=== PATIENT | female | born 1965 | race African-American/Black ===

== ENCOUNTER 2019-02-10 11:51 | Emergency (ER) | payer BC, MEDICAID ==
[~2019-02-10] VITALS: Ht 160 cm; Wt 80.7 kg
[~2019-02-10 11:51] MED LIST: LOSA1TAB22 PO
[2019-02-10 12:18] VITALS: BP 145/85
[2019-02-10 12:54] LABS: INFLUENZA A PATIENT NEGATIVE (NEGATIVE); INFLUENZA B PATIENT POSITIVE (NEGATIVE)
[2019-02-10] MEDS ORDERED: OSELTAMIVIR 75 MG CAPSULE PO STA (12:54)
[2019-02-10] MEDS ORDERED: BENZ100C PO (13:17)
[2019-02-10] MEDS ORDERED: ALBU2.5V8 IH (13:17)
[2019-02-10] MEDS ORDERED: HYDR-3164 PO (13:17)
[2019-02-10] MEDS ORDERED: OSEL75CA PO (13:17)
--- NOTE | 2019-02-10 13:17 | PHYS DOC ---
Past Medical History Past Medical History: Hypertension Past Surgical History: No Surgical History Alcohol Use: Occasionally Drug Use: None Adult General Chief Complaint Chief Complaint: DIZZY/LIGHT HEADED HPI HPI Patient is a 53 year old patient with history of hypertension who presents with complaining of dizziness. Patient states she had mild cough and congestion for 1 week that getting worse since yesterday and today felt dizzy and hot at work and almost passing out with generalized body ache and increasing cough and congestion. Patient complaining of nausea without vomiting, diarrhea, sick contact, focal neuro deficit, headache and head injury. Review of Systems Review of Systems Constitutional: Denies fever or chills [] Eyes: Denies change in visual acuity, redness, or eye pain [] HENT: Reports nasal congestion and sore throat Respiratory: Reports cough Cardiovascular: No additional information not addressed in HPI [] GI: Denies abdominal pain, vomiting, bloody stools or diarrhea [] : Denies dysuria or hematuria [] Musculoskeletal: Denies back pain or joint pain [] Integument: Denies rash or skin lesions [] Neurologic: Denies headache, focal weakness or sensory changes [] Endocrine: Denies polyuria or polydipsia [] All other systems were reviewed and found to be within normal limits, except as documented in this note. Current Medications Current Medications Current Medications Medications (Trade) Dose Ordered Sig/Tari Start Time Stop Time Status Last Admin Dose Admin Oseltamivir Phosphate (Tamiflu) 75 mg 1X STAT 02/10/19 12:54 02/10/19 12:56 DC Allergies Allergies Allergies Coded Allergies Type Severity Reaction Last Updated Verified No Known Drug Allergies 10/29/14 No Physical Exam Physical Exam Constitutional: Well developed, well nourished, mild distress, non-toxic appearance, temperature of 99. [] HENT: Normocephalic, atraumatic, bilateral external ears normal, oropharynx moist, pharyngeal erythema, no oral exudates, nasal congestion. [] Eyes: PERRLA, EOMI, conjunctiva normal, no discharge. [] Neck: Normal range of motion, no tenderness, supple, no stridor. [] Cardiovascular: Tachycardia, no murmur [] Lungs & Thorax: Bilateral breath sounds clear to auscultation [] Abdomen: Bowel sounds normal, soft, no tenderness, no masses, no pulsatile masses. [] Skin: Warm, dry, no erythema, no rash. [] Back: No tenderness, no CVA tenderness. [] Extremities: No tenderness, no cyanosis, no clubbing, ROM intact, no edema. [] Neurologic: Alert and oriented X 3, normal motor function, normal sensory function, no focal deficits noted. [] Psychologic: Affect normal, judgement normal, mood normal. [] Current Patient Data Vital Signs Vital Signs Date Time Temp Pulse Resp B/P (MAP) Pulse Ox O2 Delivery O2 Flow Rate FiO2 02/10/19 12:18 98.7 96 20 145/85 (105) 97 Room Air 98.7 Lab Values Laboratory Tests Test 02/10/19 12:15 Influenza Type A Antigen Negative (NEGATIVE) Influenza Type B Antigen Positive (NEGATIVE) EKG EKG [] Radiology/Procedures Radiology/Procedures [] Course & Med Decision Making Course & Med Decision Making Pertinent Labs reviewed. (See chart for details) Evaluation of patient in ER showed 53-year-old male patient with complaining of urinary symptom and dizziness and myalgia with positive flu. Flu in ER. Plan discharge patient home with diagnose of influenza B and prescription of Tamiflu, hydrocodone and albuterol and Tessalon. I've spoken with the patient and/or caregivers. I've explained the patient's condition, diagnosis and treatment plan based on information available to me at this time. I've answered the patient's and/or caregivers questions and addressed any concerns. The patient and/or caregivers have a good understanding the patient's diagnosis, condition and treatment plan as can be expected at this point. Vital signs have been stabilized. The patient's condition is stable for discharge from the emergency department. The patient will pursue further outpatient evaluation with her primary care provider or other designated consulting physician as outlined in the discharge instructions. Patient and/or caregivers are agreeable to this plan of care and follow-up instructions have been explained in detail. The patient and/or caregivers have received these instructions in written format and expressed understanding of these discharge instructions. The patient and her caregivers are aware that if any significant change in condition or worsening of symptoms should prompt him to immediately return to this of the closest emergency department. If an emergent department is not readily available I would encourage him to call 911. Julissa Disclaimer Julissa Disclaimer This electronic medical record was generated, in whole or in part, using a voice recognition dictation system. Departure Departure Impression: Primary Impression: Influenza B Additional Impressions: Myalgia Dizziness Disposition: HOME, SELF-CARE (at 1414) Condition: STABLE Referrals: LUBA GEORGE MD (PCP) Patient Instructions: Cough, Adult, Fever, Adult, Influenza, Adult Additional Instructions: Drink plenty of liquids Follow-up with your primary care physician in 3-5 days Return to ER if not getting better Thank you for visiting [facility]. We appreciate you trusting us with your care. If any additional problems come up don't hesitate to return to visit us. Please follow up with your primary care provider so they can plan additional care if needed and know about the problem that you had. If symptoms worsen come back to the Emergency Department. Any concerning symptoms that start such as chest pain, shortness of air, weakness or numbness on one side of the body, running high fevers or any other concerning symptoms return to the ER. Scripts Benzonatate (TESSALON PERLE) 100 Mg Capsule 1 CAP PO TID for cough, #21 CAP Prov: LU ALEMAN MD 02/10/19 Oseltamivir Phosphate (TAMIFLU) 75 Mg Capsule 1 CAP PO BID, #10 CAP Prov: LU ALEMAN MD 02/10/19 Albuterol Sulfate (PROAIR HFA INHALER) 8.5 Gm Hfa.aer.ad 2 PUFF IH PRN Q4-6HRS PRN for wheezing for 21 Days, #1 INHALER 0 Refills Prov: LU ALEMAN MD 02/10/19 Hydrocodone/Apap 5-325 (NORCO 5-325 TABLET) 1 Each Tablet 1 TAB PO PRN Q6HRS PRN for PAIN, #14 TAB 0 Refills Prov: LU ALEMAN MD 02/10/19 Problem Qualifiers LU ALEMAN MD Feb 10, 2019 13:17
== END 2019-02-10 13:41 | disposition home or self-care (01) ==
LOC: ER 11:51
DX: J10.1 Influenza due to other identified influenza virus with other respiratory manifestations (principal); M79.10 Myalgia, unspecified site; R42 Dizziness and giddiness; R11.2 Nausea with vomiting, unspecified; R19.7 Diarrhea, unspecified; R09.81 Nasal congestion; I10 Essential (primary) hypertension
CPT/HCPCS: 87804; 99284

== ENCOUNTER → 2020-06-26 | Outpatient (CLI) | payer BC, MEDICAID ==
[~2020-06-26] MED LIST changes: +ALBU2.5V8 IH; +BENZ100C PO; +HYDR-3164 PO; +OSEL75CA PO
--- NOTE | 2020-06-26 12:21 | CARD ---
MR#: [id number] Date of Study: 06/26/2020 Ordering Physician: GENNA WEBER, Referring Physician: GENNA WEBER, Tech: Clary Tyson, [facility] APPROVED REPORT EXAM: Two-dimensional and M-mode echocardiogram with Doppler and color Doppler. Other Information Quality : AverageHR: 55bpm INDICATION Hypertension/HCVD 2D DIMENSIONS RVDd3.2 (2.9-3.5cm)Left Atrium(2D)3.1 (1.6-4.0cm) IVSd0.8 (0.7-1.1cm)Aortic Root(2D)3.4 (2.0-3.7cm) LVDd4.3 (3.9-5.9cm)LVOT Diameter2.0 (1.8-2.4cm) PWd0.8 (0.7-1.1cm)LVDs2.6 (2.5-4.0cm) FS (%) 38.2 %SV56.4 ml Aortic Valve AoV Peak Anjel.127.0cm/sAoV VTI27.8cm AO Peak GR.6.5mmHgLVOT Peak Anjel.96.5cm/s LVOT VTI 23.20cmAO Mean GR.3mmHg CATHERINE (VMAX)1.55xn0IEE (VTI)2.67cm2 Mitral Valve MV E Ldcynlek59.2cm/sMV DECEL RIXZ100mc MV A Bmdjgwxs01.9cm/sMV DVB53ta E/A Ratio1.0MVA (PHT)3.39cm2 TDI E/Lateral E'6.7E/Medial E'6.9 Pulmonary Valve PV Peak Kceyxjeq44.9cm/s Tricuspid Valve TR P. Yroxxziv927tb/sRAP GCRZVLKS6pkFi TR Peak Gr.88yjAqFGCF77vkIo Pulmonary Vein S1 Dihjuiwd29.7cm/sD2 Rybpplke56.4cm/s PVa rblkndro018swlc LEFT VENTRICLE The left ventricle is normal size. There is normal left ventricular wall thickness. The left ventricu lar systolic function is normal and the ejection fraction is within normal range. The Ejection Fracti on is 55-60%. There is normal LV segmental wall motion. Transmitral Doppler flow pattern is Grade I-a bnormal relaxation pattern. RIGHT VENTRICLE The right ventricle is normal size. There is normal right ventricular wall thickness. The right ventr icular systolic function is normal. ATRIA The left atrium size is normal. The right atrium size is normal. The interatrial septum is intact wit h no evidence for an atrial septal defect or patent foramen ovale as noted on 2-D or Doppler imaging. AORTIC VALVE The aortic valve is normal in structure and function. Doppler and Color Flow revealed no significant aortic regurgitation. There is no significant aortic valvular stenosis. Calculated aortic valve area is 2.34 cm2 with maximum pressure gradient of 7 mmHg and mean pressure gradient of 4 mmHg. MITRAL VALVE The mitral valve is normal in structure and function. There is no evidence of mitral valve prolapse. There is no mitral valve stenosis. Doppler and Color-flow revealed trace mitral regurgitation. TRICUSPID VALVE The tricuspid valve is normal in structure and function. Doppler and Color Flow revealed trace tricus pid regurgitation with an estimated PAP of 26 mHg. There is no tricuspid valve stenosis. PULMONIC VALVE The pulmonic valve is not well visualized. Doppler and Color Flow revealed no pulmonic valvular regur gitation. GREAT VESSELS The aortic root is normal in size. The IVC is normal in size and collapses >50% with inspiration. PERICARDIAL EFFUSION There is no evidence of significant pericardial effusion. Critical Notification Critical Value: No <Conclusion> The left ventricle is normal size. The left ventricular systolic function is normal and the ejection fraction is within normal range. The Ejection Fraction is 55-60%. Doppler and Color Flow revealed no significant aortic regurgitation. There is no significant aortic valvular stenosis. Doppler and Color-flow revealed trace mitral regurgitation. Doppler and Color Flow revealed trace tricuspid regurgitation with an estimated PAP of 26 mHg. Signed by : Domingo Jeronimo MD Electronically Approved : 06/26/2020 12:20:58
--- NOTE | 2020-06-26 12:33 | RAD ---
MR#: [id number] Date of Study: 06/26/2020 Ordering Physician: GENNA WEBER Referring Physician: ELVIA ZAVALETA Tech: RT Ashutosh (R) (N) APPROVED REPORT Test Type: Exercise Stress Nurse/Tech: Janessa Cronin R.N. Test Indications: chest pain Cardiac History: htn, family hx Medications: See Electronic Medical Record Medical History: See Electronic Medical Record Resting ECG: SB Resting Heart Rate: 55 bpm Resting Blood Pressure: 141/83mmHg Pretest Chest Pain: No chest pain Nurse/Tech Notes S1S2, lungs CTA Consent: The procedure was explained to the patient in lay terms. Informed consent was witnessed. [place] eout was entered into [employer]. History and Stress Test performed by RT Ashutosh (R) (N) Stress Symptoms general fatigue POST EXERCISE Reason for Termination: Reached target heart rate Target HR: Yes Max HR: 150 bpm 90% of Maximum Predicted HR: 166 bpm Exercise duration: 11:00 min:sec, 4 Stage Exercise capacity: 13.4METs Max Blood Pressure: 171/88mmHg Blood Pressure response to exercise: Normal blood pressure response during stress. Heart Rate response to exercise: wnl Chest Pain: No. Arrhythmia: No. ST Change: No. INTERPRETATION Stress EKG Conclusion: The resting EKG shows a sinus rhythm and slight nonspecific T wave changes. The stress EKG shows no significant changes from baseline. No EKG evidence of stress-induced ischemia. Imaging Protocol IMAGE PROTOCOL: Rest Tc-99m/stress Tc-99m 1 day Rest: Stress: Viability: Radiopharm.Tc99m CppesotfuAq57g Sestamibi Dose10.2mCi 31mCi Duration 15min. 10min. Img Date 06/26/2020 06/26/2020 Inj-Img Fufd99odd. 45min. Rest Admin Site:IV - Right AntecubitalAdministrator:RT Ashutosh (R)(N) Stress Admin Site: IV - Right AntecubitalAdministrator: JESS Posey, ARRT (R)(N) STRESS DATA End Diast. Vol.80.0mlAv. Heart Rate65.0bpm End Syst. Vol.20.0mlCO Index BSA0.0L/min Myocardial Zbwe826.0gEject. Vuwabskm83.0% Stress Rates Pk. Fill Rate2.93EDV/secLVtime Pk. Fill 251.89msec Pk. Empty Rate3.88ESV/secLVtime Pk. Qtawj161.64msec 1/3 Pk. Fill1.42EDV/sec Stress Scores Regional WT1.00Summed WT8.00 Regional WM0.00Summed WM0.00 LV Perfusion The stress scans show no significant defects. The rest scans show no significant defects. Nuclear imaging shows no reversible ischemia or infarct. Wall Motion Left ventricular systolic function is normal with no regional wall motion abnormalities and an ejecti on fraction of greater than 70%. LV Perf. Quant 17 Seg. SSS3.00 17 Seg. SRS8.00 17 Seg. SDS0.00 Stress Defect Extent (% LAD)8.10Rest Defect Extent (% LAD)10.60Rev. Defect Extent (% LAD)0.00 Stress Defect Extent (% LCX) 0.00Rest Defect Extent (% LCX)22.50Rev. Defect Extent (% LCX)0.00 Stress Defect Extent (% RCA)0.00Rest Defect Extent (% RCA)0.00Rev. Defect Extent (% RCA)0.00 Stress Defect Extent (% LANRE)4.60Rest Defect Extent (% LANRE)12.00Rev. Defect Extent (% LANRE)0.00 Conclusion 1. Good exercise tolerance with the patient walking for 11 minutes on a Napoleon protocol. 2. No reported chest pain with exertion. 3. No EKG evidence of stress-induced ischemia. 4. Nuclear imaging shows no reversible ischemia or infarct. 5. Normal left ventricular systolic function with an ejection fraction of greater than 70%. 6. Low risk treadmill nuclear stress test. Signed by : Domingo Jeronimo MD Electronically Approved : 06/26/2020 12:32:37
== END ==
LOC: ECHO 07:44
PROVIDERS: ATTEND Internal Medicine Cardiovascular Disease
DX: I10 Essential (primary) hypertension (principal)
CPT/HCPCS: 78452; 93017; 93306; A9500

== ENCOUNTER 2021-02-09 06:15 | Emergency (ER) | payer BC, MEDICAID ==
[~2021-02-09] VITALS: Ht 160 cm; Wt 69.5 kg
--- NOTE | 2021-02-09 06:53 | PHYS DOC ---
Past Medical History Past Medical History: Hypertension Past Surgical History: No Surgical History Smoking Status: Never Smoker Alcohol Use: Occasionally Drug Use: None General Adult EDM: Chief Complaint: FLU SYMPTOM HPI: HPI: Patient is a 55 year old here with 3 to 4 days of fevers chills diffuse muscle aches in her back, headache, loss of sense of taste and smell, decreased appetite. She denies chest pain or dyspnea. She reports only mild cough, she does report some mild nasal congestion and drainage. She denies abdominal pain, vomiting, nausea, diarrhea. She denies urinary symptoms. She denies rash. She is not vaccinated against Covid nor influenza. She works at [employer]. Her daughter has similar symptoms and is also unvaccinated. She denies recent travel history. She denies recent surgeries or hospitalizations. She has not taken any antipyretics or medications since yesterday. Review of Systems: Review of Systems: Constitutional: Reports fever and chills and myalgias. Eyes: Denies change in visual acuity. [] HENT: Reports nasal congestion. Denies sore throat. Respiratory: Denies cough or shortness of breath. [] Cardiovascular: Denies chest pain or edema. [] GI: Denies abdominal pain, nausea, vomiting, or diarrhea : Denies urinary symptoms. Musculoskeletal: Diffuse back pain and myalgias. Integument: Denies rash. [] Neurologic: Reports mild headache, denies focal weakness, numbness or tingling. Denies syncope, dizziness, vertigo. Lymphatic: Denies swollen glands. [] Psychiatric: Denies depression or anxiety. [] Heart Score: C/O Chest Pain: No Risk Factors: Risk Factors: DM, Current or recent (<one month) smoker, HTN, HLP, family history of CAD, obesity. Risk Scores: Score 0 - 3: 2.5% MACE over next 6 weeks - Discharge Home Score 4 - 6: 20.3% MACE over next 6 weeks - Admit for Clinical Observation Score 7 - 10: 72.7% MACE over next 6 weeks - Early Invasive Strategies Allergies: Allergies: Allergies Coded Allergies Type Severity Reaction Last Updated Verified No Known Drug Allergies 10/29/14 No Physical Exam: PE: Constitutional: Well developed, well nourished, no acute distress, non-toxic appearance. [] HENT: Normocephalic, atraumatic, oropharynx is patent and clear without exudate or erythema, mucous membranes are moist, TMs are clear bilaterally. Eyes: PERRL, EOMI, conjunctiva normal, no discharge. [] Neck: Normal range of motion, no tenderness, supple, no stridor. No meningismus. Trachea is midline. Cardiovascular:Heart rate regular rhythm, was 2 radial and +2 posterior tibial pulses bilaterally Lungs & Thorax: Bilateral breath sounds clear to auscultation, no rales, rhonchi or wheezes or stridor. No evidence of distress. Abdomen: Abdomen is soft, nondistended, nontender to palpation. Skin: Warm, dry, no erythema, no rash. [] Back: No tenderness, no CVA tenderness. [] Extremities: No tenderness, no cyanosis, no clubbing, ROM intact, no edema. No calf tenderness. Neurologic: Alert and oriented X 3, normal motor function, normal sensory function, no focal deficits noted. [] Psychologic: Affect normal, judgement normal, mood normal. [] EKG: EKG: [] Radiology/Procedures: Radiology/Procedures: [] Course & Med Decision Making: Course & Med Decision Making Pertinent Labs and Imaging studies reviewed. (See chart for details) IM Toradol was given for pain here. I discussed the findings, differential diagnosis and plan of care with her. She is a positive Covid 19 test here. I explained her symptoms are consistent with this. She is to perform contact tracing, notify her employers and coworkers, all recent close contacts in the last 14 days. She is to self isolate at home. She is given home care instructions, may alternate Tylenol and ibuprofen as needed for pain or fever. She is to stay well-hydrated. Strict return precautions are given. She verbalizes understanding, she is comfortable with this plan. Julissa Disclaimer: Julissa Disclaimer: This electronic medical record was generated, in whole or in part, using a voice recognition dictation system. Departure Departure Impression: Primary Impression: COVID-19 Disposition: HOME / SELF CARE / HOMELESS Condition: STABLE Referrals: LUBA GEORGE MD (PCP) Additional Instructions: You have been tested for or diagnosed with COVID-19. It is an infection caused by a new type of coronavirus. COVID-19 will cause cold-like or mild flu symptoms in most. It can cause more severe symptoms like problems breathing in some. There is no treatment for COVID-19. The body will clear the infection over time. Self-care will help to ease discomfort. Steps to Take: Self-Care Rest as needed. Healthy habits may help you feel better. Steps include: Choose healthy foods including fruits and vegetables. Drink water throughout the day. Get plenty of sleep each night. If you smoke, try to quit. It may ease breathing. Avoid alcohol. Keep Others Healthy The virus can spread to others. Droplets are released every time you sneeze or cough. The droplets can get into the mouth, nose, or eyes of people near you and lead to infection. To lower the chances of spreading COVID-19 to others: Stay at home until your doctor has said it is safe to leave. If you tested positive this will mean staying isolated until both of the following are true: At least 7 days have passed since the start of illness. You are free of fever for at least 72 hours without the use of medicine. During this time: - Avoid public areas, events, or transportation. Do not return to work or school until your doctor has said it is safe to do so. - Call ahead if you need to go to a medical center. Let them know you may have COVID-19. It will help them guide you where to go. They may also ask you to wear a facemask when you come to the office. - If you call for emergency medical services, let them know you may have COVID- 19. While at home: - Try to avoid close contact with others. Stay about 6 feet away. - If possible, spend most of your time in a separate room from others. - Use a face mask if you will be in close contact with others such as sharing a room or vehicle. - Have someone wipe down common surfaces in the home. Use household waiter/waitress first class every day on areas like doorknobs, counters, or sinks. - Cough or sneeze into a tissue. Throw the tissue away right after use. If a tissue is not available, cough or sneeze into your elbow. - Wash your hands often. Wash them after sneezing or coughing. Use soap and water and wash for at least 20 seconds. Alcohol based hand acid tank cleaner can be used if soap and water is not available. - Do not prepare food for others. Avoid sharing personal items like forks, spoons, or toothbrushes. - Avoid close contact with pets while you are sick. There is no evidence of the virus passing to pets. This is a safety step until more is known about this virus. Isolation can be frustrating. Social interaction can help. Keep in touch with friends and family through phone and tech options. You can still interact with others in your home, just keep a safe distance of about 6 feet. Follow-up: Your doctors office will check in with you to see if there are any changes in your health. You may be asked to keep track of symptoms to share with them. They will also let you know when you are clear to be in public again. Problems to Look Out For: Contact your doctor if your recovery is not going as you expect. Get emergency care if you have problems such as: - Trouble breathing - Nonstop chest pain or pressure - Changes in awareness, confusion, or problems waking - Lips or face have bluish color - Worsening of symptoms If you think you have an emergency, call for emergency medical services right away. As taken from [facility] [place] CARMEN Uriarte DO Feb 09, 2021 06:53
[2021-02-09] MEDS ORDERED: KETOROLAC 30 MG/ML VIAL. IM ONE (07:15)
[2021-02-09 07:55] LABS: INFLUENZA A PATIENT NEGATIVE (NEGATIVE); INFLUENZA B PATIENT NEGATIVE (NEGATIVE)
[2021-02-09 08:08] LABS: BILIRUBIN,URINE NEGATIVE (NEG); CLARITY,URINE CLEAR; COLOR,URINE AMBER; NITRITE,URINE NEGATIVE (NEG); PROTEIN,URINE 100 mg/dL (NEG-TRACE)
[2021-02-09 08:20] VITALS: BP 131/79
[2021-02-09 08:28] LABS: RBC,URINE 0 /HPF (0-2)
[2021-02-09 08:29] LABS: BACTERIA,URINE FEW /HPF (0-FEW)
== END 2021-02-09 08:22 | disposition home or self-care (01) ==
LOC: ER 06:15
DX: U07.1 COVID-19 (principal); I10 Essential (primary) hypertension
CPT/HCPCS: 81001; 87086; 87426; 87804; 96372; 99283; J1885